=== PATIENT | female | born 1955 | race Caucasian/White ===

== ENCOUNTER → 2017-09-24 13:35 | Outpatient (CLI) | payer OTHER, SELFPAY ==
--- NOTE | 2017-09-24 13:43 | XR_ITS ---
XR knee LT 3V HISTORY: Follow-up fracture, pain ITS.REASON: left tibial plateau fracture ORDERING PHYSICIAN: Michael Starr MD PATIENT AGE: 62 years COMPARISON: 08/06/2017 FINDINGS: Nondisplaced longitudinal fracture involves the central aspect of lateral tibial plateau. There is minimal depression of the lateral tibial plateau as before intra-articular calcific loose bodies once again noted as well as a popcorn-like calcification along the posterior aspect of the patella region as before. IMPRESSION: Overall no change lateral tibial plateau fracture with minimal depression
== END ==
PROVIDERS: PCP Family Medicine; Visit Provider Orthopaedic Surgery
DX: S82.122D Displaced fracture of lateral condyle of left tibia, subsequent encounter for closed fracture with routine healing (principal)
CPT/HCPCS: 73562